=== PATIENT | female | born 1990 | race African-American/Black ===

== ENCOUNTER → 2023-08-24 09:32 | Outpatient (CLI) | payer OTHER, SELFPAY ==
--- NOTE | 2023-08-24 09:35 | DI.US.S_ITS ---
PROCEDURE: US OB <= 14 WEEKS FETUS INDICATIONS: DATING AND VIABILTY OUTSIDE/PRIOR DATING DATA: Last menstrual period (LMP): 06/29/2023. LMP-based estimated date of delivery (MANUEL): 04/04/2024. First dating scan (date and location): 08/24/2023. Estimated date of delivery (MANUEL) from first dating scan: 03/27/2024. TECHNIQUE: Real-time scanning was performed of the fetus and maternal pelvic organs, with image documentation. Endovaginal scanning was also performed to better visualize the fetus and maternal ovaries. COMPARISON: None. FINDINGS: Embryo: [place]-rump length of 2.4 cm, consistent with 9 weeks and 1 day. Normal yolk sac is seen. Heart rate: 163 beats per minute No perigestational bleed. Maternal organs: Ovaries are within normal limits. IMPRESSION: Single live intrauterine consistent with 9 weeks and 1 day. We strive to produce accurate, complete, and clear reports of imaging services. To assist us in improving patient care, this report was composed using standard report templates and voice recognition software. Therefore, it may contain abnormal punctuation, insertions and/or omissions. Occasional wrong-word or sound-alike substitutions may occur. Though we review the report and make efforts to correct it, we do recommend that the report be read carefully in proper context to recognize any text inaccuracies. Dictated by: Librado Cuba M.D. on 08/24/2023 at 10:38 Approved by: Librado Cuba M.D. on 08/24/2023 at 10:40
== END ==
PROVIDERS: Referring Provider Obstetrics & Gynecology; Visit Provider Obstetrics & Gynecology
DX: Z34.81 Encounter for supervision of other normal pregnancy, first trimester (principal); Z3A.09 9 weeks gestation of pregnancy
CPT/HCPCS: 76801; 76817

== ENCOUNTER → 2023-09-26 10:41 | Outpatient (CLI) | payer OTHER, SELFPAY ==
[2023-09-26 15:09] LABS: Urine Chlamydia NOT DETECTED; Urine N gonorrhoeae NOT DETECTED
== END ==
PROVIDERS: Visit Provider Obstetrics & Gynecology
DX: Z3A.13 13 weeks gestation of pregnancy; Z34.01 Encounter for supervision of normal first pregnancy, first trimester
CPT/HCPCS: 87491; 87591

== ENCOUNTER → 2023-09-26 11:02 | Outpatient (CLI) | payer OTHER, SELFPAY ==
[2023-09-26 12:04] LABS: Add Manual Diff / Slide Review NO; Basophils Absolute Auto 0 /uL (0-100); Basophils Percent Auto 0.2 % (0-2); Eosinophils Absolute Auto 100 /uL (0-450); Eosinophils Percent Auto 0.6 % (2-4); Hematocrit 32.5 % (36-46); Hemoglobin 11.1 g/dL (12.0-16.0); Lymphocytes Absolute Auto 1500 /uL (1100-4500); Lymphocytes Percent Auto 14.9 % (25-40); Mean Corpuscular HGB Conc 34.1 % (30-36); Mean Corpuscular Hemoglobin 29.1 PG (26-34); Mean Corpuscular Volume 85.4 fL (80-100); Monocytes Absolute Auto 600 /uL (0-900); Neutrophils Absolute Auto 7800 /uL (1500-7000); Neutrophils Percent Auto 78.3 % (50-75); Platelet Count 240 X10^3/uL (150-400); Red Cell Distribution Width 13.1 % (11.6-14.8); White Blood Cell Count 9.9 X10^3/uL (4.5-11.0)
[2023-09-27 04:38] LABS: RPR Screen Non Reactive (Non Reactive)
[2023-09-27 08:36] LABS: Varicella IgG Antibody 297 index (Immune >165)
[2023-09-27 20:12] LABS: HIV 1 & 2 Ab/Ag 4th Gen Combo NEGATIVE (NEGATIVE); Hepatitis B Surface Antigen NEGATIVE s/c (NEGATIVE); Rubella Antibody IgG 29.5 IU/mL (>15)
[2023-09-28 18:21] LABS: Hep C Virus Ab w/Reflex Quant NEGATIVE s/c (NEGATIVE)
== END ==
LOC: LAB 11:03
PROVIDERS: Referring Provider Obstetrics & Gynecology; Visit Provider Obstetrics & Gynecology
DX: Z34.81 Encounter for supervision of other normal pregnancy, first trimester (principal); Z3A.13 13 weeks gestation of pregnancy
CPT/HCPCS: 36415; 80055; 86787; 86803; 86850; 86900; 86901; 87389; 87491; 87591

== ENCOUNTER → 2023-11-08 08:46 | Outpatient (CLI) | payer OTHER, SELFPAY ==
--- NOTE | 2023-11-08 08:47 | DI.US.S_ITS ---
PROCEDURE: US OB >= 14 WEEKS FETUS INDICATIONS: Anatomy Scan OUTSIDE/PRIOR DATING DATA: Last menstrual period (LMP): 06/29/2023 LMP-based estimated date of delivery (MANUEL): 04/04/2024. First dating scan (date and location): 08/24/2023. Estimated date of delivery (MANUEL) from first dating scan: 03/27/2024 Working MANUEL is 04/04/2024. TECHNIQUE: Real-time scanning was performed of the fetus, with image documentation and biometric measurements. COMPARISON: [facility], , OB <= 14 WEEKS FETUS, 08/24/2023, 9:51. FINDINGS: General: A single living intrauterine gestation is present. Presentation: Breech. Placenta: Placental position is posterior fundal , without previa. Amniotic fluid index: 17.4 cm, normal range is 5-24 cm. Single deepest vertical pocket is 5.6 cm. heart rate: 147 beats per minute. Maternal cervical canal: 4.2 cm long. Normal lower limit is 2.5 cm. biometrics: Biparietal diameter: 19 weeks 4 days Head circumference: 19 weeks 2 days Abdominal circumference: 20 weeks 2 days Femur length: 19 weeks Clinically estimated gestational age: 18 weeks 6 days Composite gestational age from present scan: 19 weeks 4 days Estimated weight and percentile: 305 g; 88th percentile Anatomic survey: Neuro: Ventricles are non-dilated at less than 10 mm. Cisterna magna is normal at 3-11 mm. Cerebellum is normal in size and morphology. Nuchal skin fold: Normal at less than 6 mm between 14-21 weeks gestational age. Face: Nose and lips, facial profile are normal. Spine: No evidence for spina bifida. Heart: 4-chambered heart is present, with normal ventricular outflow tracts. Diaphragm: Diaphragm is intact. Stomach: Left-sided stomach is present with internal debris. Kidneys: No hydronephrosis. Normal is less than 5 mm in 2nd trimester, less than 7 mm in 3rd trimester. Cord: 3-vessel cord has orthotopic insertion. Bladder: Normal in size. Extremities: All 4 extremities identified. IMPRESSION: 1. Single living IUP redemonstrated and interval growth is upper limits of normal. 2. Normal anatomic survey. 3. Debris noted within the stomach. If clinically desired, short-term follow-up ultrasound could be performed to assess for temporal change and/or resolution. We strive to produce accurate, complete, and clear reports of imaging services. To assist us in improving patient care, this report was composed using standard report templates and voice recognition software. Therefore, it may contain abnormal punctuation, insertions and/or omissions. Occasional wrong-word or sound-alike substitutions may occur. Though we review the report and make efforts to correct it, we do recommend that the report be read carefully in proper context to recognize any text inaccuracies. Dictated by: Navarro SHEIKH Interpreted: Dori Bo MD on 11/08/2023 at 13:21 Transcribed by: MICHELLE on 11/08/2023 at 13:25 Approved by: Dori Bo M.D. on 11/08/2023 at 19:57
== END ==
LOC: US 08:46
PROVIDERS: Referring Provider Obstetrics & Gynecology; Visit Provider Obstetrics & Gynecology
DX: Z34.82 Encounter for supervision of other normal pregnancy, second trimester (principal); Z3A.19 19 weeks gestation of pregnancy
CPT/HCPCS: 76811

== ENCOUNTER 2023-11-08 16:29 | Emergency (ER) | payer OTHER, SELFPAY ==
[2023-11-08] VITALS (11 sets, daily range): BP systolic 101–128; BP diastolic 56–79; PULSE 60–73; RESP 16–22; TEMP 36.3–36.7; O2SAT 92–100; BMI 24.2
[2023-11-08 17:38] LABS: Add Manual Diff / Slide Review NO; Basophils Absolute Auto 0 /uL (0-100); Basophils Percent Auto 0.5 % (0-2); Eosinophils Absolute Auto 0 /uL (0-450); Eosinophils Percent Auto 0.8 % (2-4); Hemoglobin 11.8 g/dL (12.0-16.0); Lymphocytes Absolute Auto 1500 /uL (1100-4500); Lymphocytes Percent Auto 30.7 % (25-40); Mean Corpuscular HGB Conc 33.8 % (30-36); Mean Corpuscular Hemoglobin 29.2 PG (26-34); Mean Corpuscular Volume 86.3 fL (80-100); Monocytes Absolute Auto 400 /uL (0-900); Monocytes Percent Auto 8.3 % (3-14); Neutrophils Absolute Auto 3000 /uL (1500-7000); Neutrophils Percent Auto 59.7 % (50-75); Platelet Count 237 X10^3/uL (150-400); Red Blood Cell Count 4.06 X10^6/uL (4.0-5.2)
[2023-11-08 17:45] LABS: INR 1.1 (0.9-1.3); Prothrombin Time 12.7 SECONDS (9.4-12.5)
[2023-11-08 17:48] LABS: PTT Partial Thromboplastin Tim 35 SECONDS (25.1-36.5)
[2023-11-08 17:50] LABS: Alanine Aminotransferase 24 IU/L (<35); Albumin 3.9 g/dL (3.5-5.0); Albumin Globulin Ratio 1.1 (1.0-2.8); Alkaline Phosphatase 50 U/L (38-126); Aspartate Aminotransferase 38 IU/L (14-36); BUN Creatinine Ratio 13.3 (6-22); Bilirubin Total 0.3 mg/dL (0.2-1.3); Blood Urea Nitrogen 8 mg/dL (7-17); Calcium 8.5 mg/dL (8.4-10.2); Carbon Dioxide 22 mmol/L (22-32); Chloride 102 mmol/L (98-107); Creatine Kinase 68 U/L (30-135); Estimated Glomerular Filt Rate > 60 mL/min (>60); Globulin 3.5 g/dL (1.7-4.1); Glucose 74 mg/dL (70-100); HEMOLYSIS < 15 (0-50); Lipase 120 U/L (23-300); Magnesium 1.7 mg/dL (1.6-2.3); Potassium 3.7 mmol/L (3.4-5.1); Sodium 134 mmol/L (137-145); Total Protein 7.4 g/dL (6.3-8.2)
[2023-11-08 18:01] LABS: Troponin I < 0.012 ng/mL (0.01-0.034)
[2023-11-08 20:34] LABS: Bacteria Urine None Seen; Culture Indicated Urine Cult Not Indicated; Mucus Urine 1+ (Negative); RBC Urine None Seen (0-5/HPF); Squamous Epithelial Cell Urine None Seen (0-5/HPF); Urine Volume 10mL (spun); WBC Urine None Seen (0-5/HPF)
[2023-11-08 21:00] LABS: Troponin I < 0.012 ng/mL (0.01-0.034)
--- NOTE | 2023-11-08 22:22 | ED_ITS ---
HPI - Chest Pain General Chief Complaint: Chest Pain Stated Complaint: 20 wks , lt sided upper chest pain Time Seen by Provider: 11/08/23 19:15 Source: patient Mode of arrival: Ambulatory Limitations: no limitations History of Present Illness HPI narrative: 32-year-old at 20 weeks was sitting in her desk and all of sudden felt an acute pain in the left axilla almost radiating through to the back described as sharp and reproducible with deep breathing. She had eaten lunch just prior to that and taken an iron tablet. Not complaining of heartburn or central chest pressure. Has not noticed palpitations. No recent fever, cough, chills. No complications with this current . She states that she has never had previous findings. On arrival blood pressure is 101/56, pulse is 73 respiratory rate of 20 she is afebrile and oxygen saturations are 100% on room air. Related Data Home Medications Medication Instructions Recorded Confirmed vit no.95-ferrous 1 tab PO DAILY 09/11/23 10/25/23 fumarate 28 mg-folic acid 800 mcg tablet ( Multivitamins) Previous Rx's Medication Instructions Recorded ondansetron 4 mg disintegrating 4 mg PO Q6H PRN nausea and 10/09/23 tablet vomiting #20 tabs Allergies Allergy/AdvReac Type Severity Reaction Status Date / Time No Known Drug Allergies Allergy Unverified 10/25/23 14:39 Review of Systems Review of Systems Narrative: Pertinent positive and negative findings as per HPI Patient History Medical History Abnormal Pap smear of cervix (~2015) Kidney stones (~2021) Pituitary adenoma (~2021) Precipitous delivery Anxiety (~2021) Surgical History H/O LEEP (~2015) No pertinent past surgical history Family History Sister Multiple sclerosis Sister Pulmonary disease due to eosinophilic granulomatosis with polyangiitis (EGPA) Sister Diabetes mellitus Rheumatoid arthritis Lupus Father Hypertension Mother Diabetes mellitus Anxiety Panic attacks Grandmother Dementia Social History marital status: number of children: 2 household members: spouse and children lives independently: Yes caregiver/support person: Yes housing: house pets and animals: Yes (cat, managing litter box) education level: college (associate's degree) occupational status: employed (active duty, admin job) current occupational exposures/hazards: No special caterina needs: No travel history: over 6 months ago seatbelt use: always water heater temp set < 120 deg: Yes working smoke detector in home: Yes fire extinguisher in home: Yes carbon monox detector in home: Yes firearms in home: No do you feel safe at home: Yes Smoking Status: Never smoker Tobacco: How many years used: 8 second hand exposure: No alcohol intake: former (2-3 glasses wine/week when not ) substance use type: does not use during the past year weight has: other (more or less back to pre-baby wt, youngest is ~9 months old) well-balanced diet: rarely or never daily servings fruits/ve-1 (1-2) caffeine: No Type(s) of exercise: none Smoking Status: Never smoker Exam Initial Vital Signs Initial Vital Signs: Vital Signs Temperature 98.1 F 11/08/23 16:44 Pulse Rate 73 11/08/23 16:44 Respiratory Rate 20 11/08/23 16:44 Blood Pressure 101/56 L 11/08/23 16:44 Pulse Oximetry 100 11/08/23 16:44 Oxygen Delivery Method Room Air 11/08/23 16:44 General: Healthy appearing, in no acute distress. Able to give a complete and coherent history. Well-nourished well-developed HEENT: Moist mucous membranes, normal sclera with reactive pupils, Neck: No cervical adenopathy Respiratory: Lungs are clear to auscultation, no wheezing no rales no rhonchi. Full and symmetrical air movement. With deep breath there is some minor reproducible pain that she experiences in the axilla Cardiac: Regular rate and rhythm no murmurs no bruits Abdomen: Soft, gravid, heart tones are appreciated 144 Skin: Warm and dry, no rashes Neurologic: Grossly neurologically intact with no obvious asymmetries or abnormalities Extremities: No trauma, well perfused Psych: Cooperative, appropriate insight and affect Course Orders Ordered: ED Orders 11/08/23 16:55 EKG-12 Lead Stat 11/08/23 17:30 Complete Blood Count AUTO DIFF Stat Comprehensive Metabolic Panel Stat Lipase Stat Magnesium Stat PTT Partial Thromboplastin Aj Stat Prothrombin Time INR Stat Troponin & CK Cardiac Panel Stat 11/08/23 19:58 Urine Microscopic Stat 11/08/23 20:32 Troponin I Stat Discontinued Medications Acetaminophen (Acetaminophen 325 Mg Tablet) 650 mg PO NOW ONE Stop: 11/08/23 19:27 Last Admin: 11/08/23 19:42 Dose: Not Given Documented By: NAOMI Vital Signs Vital signs: Vital Signs - 8 hr 11/08/23 16:44 11/08/23 19:35 11/08/23 19:52 Temperature 98.1 F Pulse Rate 73 62 65 Respiratory Rate 20 18 Blood Pressure 101/56 L 103/59 L Pulse Oximetry 100 100 92 Oxygen Delivery Method Room Air Room Air 11/08/23 19:54 11/08/23 19:54 11/08/23 20:00 Temperature Pulse Rate 62 73 Respiratory Rate 17 20 Blood Pressure 102/58 L Pulse Oximetry 100 96 Oxygen Delivery Method 11/08/23 20:00 11/08/23 20:30 11/08/23 20:30 Temperature Pulse Rate 68 Respiratory Rate 22 Blood Pressure 128/79 118/56 L Pulse Oximetry 100 Oxygen Delivery Method 11/08/23 21:00 11/08/23 21:00 11/08/23 21:30 Temperature Pulse Rate 69 65 Respiratory Rate 18 18 Blood Pressure 120/69 Pulse Oximetry 97 97 Oxygen Delivery Method Room Air 11/08/23 21:30 Temperature Pulse Rate Respiratory Rate Blood Pressure 122/74 Pulse Oximetry Oxygen Delivery Method MDM - Chest Pain Lab Data 11/08/23 17:30 11/08/23 17:30 Labs: Lab Results 11/08/23 11/08/23 11/08/23 Range/Units 17:30 19:58 20:32 WBC 5.0 (4.5-11.0) X10^3/uL RBC 4.06 (4.0-5.2) X10^6/uL Hgb 11.8 L (12.0-16.0) g/dL Hct 35.0 L (36-46) % MCV 86.3 (80-100) fL MCH 29.2 (26-34) PG MCHC 33.8 (30-36) % RDW 14.0 (11.6-14.8) % Plt Count 237 (150-400) X10^3/uL Neut % (Auto) 59.7 (50-75) % Lymph % (Auto) 30.7 (25-40) % [place] % (Auto) 8.3 (3-14) % Eos % (Auto) 0.8 L (2-4) % Baso % (Auto) 0.5 (0-2) % Neut # (Auto) 3000 (2708-8889) /uL Lymph # (Auto) 1500 (5634-4149) /uL [place] # (Auto) 400 (0-900) /uL Eos # (Auto) 0 (0-450) /uL Baso # (Auto) 0 (0-100) /uL PT 12.7 H (9.4-12.5) SECONDS INR 1.1 (0.9-1.3) APTT 35 (25.1-36.5) SECONDS Sodium 134 L (137-145) mmol/L Potassium 3.7 (3.4-5.1) mmol/L Chloride 102 (98-107) mmol/L Carbon Dioxide 22 (22-32) mmol/L BUN 8 (7-17) mg/dL Creatinine 0.60 (0.52-1.04) mg/dL Estimated GFR > 60 (>60) mL/min BUN/Creatinine Ratio 13.3 (6-22) Glucose 74 (70-100) mg/dL Calcium 8.5 (8.4-10.2) mg/dL Magnesium 1.7 (1.6-2.3) mg/dL Total Bilirubin 0.3 (0.2-1.3) mg/dL AST 38 H (14-36) IU/L ALT 24 (<35) IU/L Alkaline Phosphatase 50 (38-126) U/L Total Creatine Kinase 68 (30-135) U/L Troponin I < 0.012 < 0.012 (0.01-0.034) ng/mL Total Protein 7.4 (6.3-8.2) g/dL Albumin 3.9 (3.5-5.0) g/dL Globulin 3.5 (1.7-4.1) g/dL Albumin/Globulin Ratio 1.1 (1.0-2.8) Lipase 120 (23-300) U/L Urine RBC None seen (0-5/HPF) Urine WBC None seen (0-5/HPF) Ur Squamous Epith Cells None seen (0-5/HPF) Urine Bacteria None seen (None) Urine Mucus 1+ H (Negative) Ur Culture Indicated? Cult not indicated Vol Urine Centrifuged 10ml (spun) Urine Dip Bedside Urine Glucose Negative Bedside Urine Bilirubin - Negative Bedside Urine Ketone - Negative Urine Specific [place] 1.015 Bedside Urine Occult Blood +/- Bedside Urine pH 6 Bedside Urine Protein +/- 15 Bedside Urine Urobilinogen - Negative Bedside Urine Nitrite - Negative Bedside Urine Leukocytes - Negative Esterase MDM Narrative Medical decision making narrative: CC: Acute left-sided chest pain at 20 weeks gestational age reproduced with deep breathing Complicating co-morbidities: Data collected from: patient Differential considered: Pneumothorax, pneumonia, referred pain, musculoskeletal pain, pleuritic pain. Given the completely normal vitals pulmonary embolism is less likely Exam documented above, pertinent findings include: Unremarkable exam. Pain is reproduced with deep breathing. Lab Test results independently reviewed as above. Pertinent findings: CBC is unremarkable Chemistries are reassuring Initial and repeat troponin are undetectable Lipase is normal Imaging studies independently reviewed: Bedside ultrasound is performed by me. There is no evidence of pneumothorax based on ultrasound Treatments: Tylenol Discussion: Otherwise healthy 32-year-old woman 20 weeks gestational age with acute onset left-sided chest pain worse with a deep breath most noticeable in the axilla radiating through to her back. Workup does not suggest acute pathology. No evidence of pneumothorax based on ultrasound done in the department, no pneumonia based on clinical exam, no evidence of acute coronary syndrome based on blood work. No pancreatitis, infection or other significant findings that would require additional imaging workup. Possibility of pill sticking to the lower esophagus causing tenderness is at least considered. She states that she has had some food since taking the pills after lunch and is not noticing any reflux type pain and did not notice that the food influenced her pain overall. At this point I believe the pain is musculoskeletal, patient is reassured. I believe she is safe for discharge. Discharge Plan Departure Patient Disposition: Home Clinical Impression: Acute chest wall pain Qualifiers: Weeks of gestation: 20 weeks Qualified Code(s): Z3A.20 - 20 weeks gestation of Instructions: DI for Pleurisy, DI for Musculoskeletal Pain Activity Restrictions/Additional Instructions: Thank you for coming in today Your workup was very reassuring. There is no evidence of collapsed lung, heart attack or heart attack like syndrome, infection such as pneumonia, no pancreatitis and no other dramatic abnormalities that would require hospitalization or additional workup today I suspect this is either musculoskeletal type pain or mild inflammation around the lining of your lung. The treatment for both of these is going to be Tylenol as needed. Typically this is self-limited and will improve without any additional treatment If you find that things were getting worse particularly if your short of breath, developing fevers, develop cough have new findings or concerns that is very appropriate to return to the ER Prescriptions: No Action ondansetron 4 mg tablet,disintegrating 4 mg PO Q6H PRN (Reason: nausea and vomiting) Qty: 20 0RF PNV cmb#95-ferrous fumarate-FA [ Multivitamins] 28 mg iron- 800 mcg tablet 1 tab PO DAILY Referrals: ProviderZoe [Primary Care Provider] - Stand Alone Forms: Patient Portal/API
[2023-11-08] MEDS: ACETAMINOPHEN 325 MG TABLET 975 MG PO (22:56)
== END 2023-11-08 23:06 | disposition home or self-care (01) ==
PROVIDERS: Emergency Medicine; Emergency Provider Emergency Medicine
DX: O26.892 Other specified pregnancy related conditions, second trimester (principal); R07.89 Other chest pain; Z3A.20 20 weeks gestation of pregnancy; Z34.82 Encounter for supervision of other normal pregnancy, second trimester; Z3A.19 19 weeks gestation of pregnancy
CPT/HCPCS: 36415; 76811; 80053; 81003; 81015; 82550; 83690; 83735; 84484; 85025; 85610; 85730; 93005; 93010; 99283; 99284

== ENCOUNTER 2023-12-10 09:52 | Outpatient (CLI) | payer OTHER, SELFPAY ==
--- NOTE | 2023-12-10 11:02 | DI.US.S_ITS ---
PROCEDURE: US OB BIOPHYSICAL PROFILE INDICATIONS: POST FALL OUTSIDE/PRIOR DATING DATA: Last menstrual period (LMP): 06/29/2023. LMP-based estimated date of delivery (MANUEL): 04/04/2024. First dating scan (date and location): 08/24/2023 Estimated date of delivery (MANUEL) from first dating scan: 03/27/2024. The calculations are made using the clinical MANUEL of 04/04/2024. TECHNIQUE: Real-time scanning was performed of the fetus for biophysical profile, with image documentation. Endovaginal scanning: Not performed COMPARISON: None. FINDINGS: General: A single living intrauterine gestation is present. Presentation: Transverse. Placenta: Placental position is posterior , without previa. Amniotic fluid index: 11.6 cm, normal range is 5-24 cm. Single deepest vertical pocket is 3.8 cm. heart rate: 147 beats per minute. Maternal cervical canal: 3.3 cm long. Normal lower limit is 2.5 cm. Clinically estimated gestational age: 23 weeks 3 days Biophysical profile: Tone: 2 points. Movement: 2 points. Respiration: 2 points. Largest pocket of fluid: 2 points. Umbilical artery Doppler: Not requested. IMPRESSION: Single living intrauterine at 23 weeks 3 days. BPP 8 of 8. We strive to produce accurate, complete, and clear reports of imaging services. To assist us in improving patient care, this report was composed using standard report templates and voice recognition software. Therefore, it may contain abnormal punctuation, insertions and/or omissions. Occasional wrong-word or sound-alike substitutions may occur. Though we review the report and make efforts to correct it, we do recommend that the report be read carefully in proper context to recognize any text inaccuracies. Dictated by: Tye Sebastian M.D. on 12/10/2023 at 11:49 Approved by: Tye Sebastian M.D. on 12/10/2023 at 11:51
== END 2023-12-10 11:36 | disposition home or self-care (01) ==
LOC: LABOR 10:03 → OB 12-11 09:48
PROVIDERS: Referring Provider Obstetrics & Gynecology; Visit Provider Obstetrics & Gynecology
DX: O36.8120 Decreased fetal movements, second trimester, not applicable or unspecified (principal); Z3A.24 24 weeks gestation of pregnancy
CPT/HCPCS: 59025; 76819; G0378; G0379

== ENCOUNTER → 2023-12-21 09:45 | Outpatient (CLI) | payer OTHER, SELFPAY ==
[2023-12-21 12:06] LABS: Hematocrit 32.9 % (36-46); Hemoglobin 11.1 g/dL (12.0-16.0)
[2023-12-21 12:32] LABS: GTT (PREG) 1 Hour PP 50gm Dose 122 mg/dL (76-139)
== END ==
PROVIDERS: Referring Provider Obstetrics & Gynecology; Visit Provider Obstetrics & Gynecology
DX: Z34.82 Encounter for supervision of other normal pregnancy, second trimester (principal); Z3A.26 26 weeks gestation of pregnancy
CPT/HCPCS: 36415; 82950; 85014; 85018

== ENCOUNTER → 2024-01-28 08:44 | Outpatient (CLI) | payer OTHER, SELFPAY ==
--- NOTE | 2024-01-28 08:45 | DI.US.S_ITS ---
PROCEDURE: US OB FOLLOW UP INDICATIONS: Debris in stomach on anatomy scan, F/U recommended OUTSIDE/PRIOR DATING DATA: Last menstrual period (LMP): 06/29/2023. LMP-based estimated date of delivery (MANUEL): 04/04/2024. First dating scan (date and location): 08/24/2023. Estimated date of delivery (MANUEL) from first dating scan: 03/27/2024. The calculations are made using the clinical MANUEL of 04/04/2024. TECHNIQUE: Real-time scanning was performed of the fetus, with image documentation. Endovaginal scanning: Not performed COMPARISON: Ultrasound 12/10/2023, 10/29/2023. FINDINGS: A single living intrauterine gestation is present. Presentation: Vertex. Placenta: Placental position is fundal, without previa. Amniotic fluid index: 11.4 cm, normal range is 5-24 cm. Single deepest vertical pocket is 4.5 cm. heart rate: 141 beats per minute. Maternal cervical canal: 4.8 cm long. Normal lower limit is 2.5 cm. Clinically estimated gestational age: 30 weeks 3 days Persistent debris within the stomach. IMPRESSION: Single living intrauterine at 30 weeks 3 days, MANUEL of 04/04/2024. Persistent debris within the stomach. In a recent, small study, this had no correlation with poor outcomes, and most resolved at 36 weeks. Continued follow up can be considered. Dictated by: Tye Sebastian M.D. on 01/28/2024 at 13:58 Approved by: Tye Sebastian M.D. on 01/28/2024 at 14:01
== END ==
PROVIDERS: Referring Provider Obstetrics & Gynecology; Visit Provider Obstetrics & Gynecology
DX: O28.3 Abnormal ultrasonic finding on antenatal screening of mother (principal); Z3A.30 30 weeks gestation of pregnancy
CPT/HCPCS: 76816

== ENCOUNTER → 2024-02-29 15:38 | Outpatient (CLI) | payer OTHER, SELFPAY ==
[2024-03-01 16:44] LABS: Strep Grp B PCR NEG for Grp B Strep
== END ==
PROVIDERS: Visit Provider Obstetrics & Gynecology
DX: Z34.03 Encounter for supervision of normal first pregnancy, third trimester (principal); Z3A.36 36 weeks gestation of pregnancy
CPT/HCPCS: 87653

== ENCOUNTER 2024-04-01 10:02 | Outpatient (CLI) | payer OTHER, SELFPAY | END 2024-04-01 10:50 | disposition home or self-care (01) | LOC: LABOR 10:12 → OB 04-03 12:18 | PROVIDERS: Referring Provider Obstetrics & Gynecology; Visit Provider Obstetrics & Gynecology | DX: O48.0 Post-term pregnancy (principal); O47.1 False labor at or after 37 completed weeks of gestation; Z3A.40 40 weeks gestation of pregnancy | CPT/HCPCS: 59025; 76815; G0378; G0379 ==

== ENCOUNTER 2024-04-02 09:27 | Outpatient (CLI) | payer OTHER, SELFPAY | END 2024-04-02 10:15 | disposition home or self-care (01) | LOC: LABOR 09:41 → OB 04-03 12:19 | PROVIDERS: Referring Provider Obstetrics & Gynecology; Visit Provider Obstetrics & Gynecology | DX: O46.93 Antepartum hemorrhage, unspecified, third trimester (principal); Z3A.40 40 weeks gestation of pregnancy | CPT/HCPCS: 59025; G0378; G0379 ==

== ENCOUNTER 2024-04-03 00:36 | Inpatient (IN) | payer OTHER, SELFPAY ==
--- NOTE | 2024-04-03 01:52 | P.HPOB_ITS ---
OB HPI Date/Time Date of admission: 04/03/24 Date Patient Seen: 04/03/24 Time Patient Seen: 01:52 History of Present Condition Chief complaint: Labor : 4 Para: 2 Estimated Date of Delivery: 03/27/24 Estimated Gestational Age (weeks): 41w Narrative: Rita Mays is a 33 yo at 41w0d presenting with PRECIOUS. She has been contreras since 10pm last night and arrived at triage just after midnight. has been uncomplicated. She does have a hx of prior precipitous delivery with her 2nd child and prior LEEP in 2015. She also had ABO incompatibility with her prior infant leading to jaundice. NST was performed on 04/01 for post-dates and was reactive with JAMES of 12cm. Contractions started at 10pm and are getting stronger. At this time, she is feeling contractions every 2 min or so. has had some vaginal spotting but no large gush of fluid. History of Present care: good care Dating criteria: based on 1st trimester US only Ultrasounds: normal 1st trimester US Obstetrical complications: none Medical complications: none Preadmission Labs Blood type: O (+) positive -: Antibody screen: negative, GBS status: negative, HBsAG: negative, HIV: negative and RPR/VDLR: negative -: Chlamydia screen: not detected and Gonorrhea screen: not detected -: Rubella: immune and Varicella: immune HCT: 12.1 HCAB: negative 1 hr GTT: 122 Evaluation Evaluation Baseline heart rate: 140 Variability: Moderate (11-25) monitor accelerations: Present Monitor Decelerations: Absent Contraction Frequency (minutes): 2 Uterine Contraction Intensity: Strong/Firm Category of Tracing: Reactive Dilation (cm): 7 Effacement (%): 80 Dilation: >/=5 cm Effacement: >/=80% station: -2 Position of cervix: anterior Consistency: soft Arnold [facility]: [facility] Medical History Abnormal Pap smear of cervix (~2015) Kidney stones (~2021) Pituitary adenoma (~2021) Precipitous delivery Anxiety (~2021) Surgical History H/O LEEP (~2015) No pertinent past surgical history Family History Sister Multiple sclerosis Sister Pulmonary disease due to eosinophilic granulomatosis with polyangiitis (EGPA) Sister Diabetes mellitus Rheumatoid arthritis Lupus Father Hypertension Mother Diabetes mellitus Anxiety Panic attacks Grandmother Dementia Social History marital status: number of children: 2 household members: spouse and children lives independently: Yes caregiver/support person: Yes housing: house pets and animals: Yes (cat, managing litter box) education level: college (associate's degree) occupational status: employed (active duty, admin job) current occupational exposures/hazards: No special caterina needs: No travel history: over 6 months ago seatbelt use: always water heater temp set < 120 deg: Yes working smoke detector in home: Yes fire extinguisher in home: Yes carbon monox detector in home: Yes firearms in home: No do you feel safe at home: Yes Smoking Status: Never smoker Tobacco: How many years used: 8 second hand exposure: No alcohol intake: former (2-3 glasses wine/week when not ) substance use type: does not use during the past year weight has: other (more or less back to pre-baby wt, youngest is ~9 months old) well-balanced diet: rarely or never daily servings fruits/ve-1 (1-2) caffeine: No Type(s) of exercise: none Meds Home Medications and Allergies Home Medications Medication Instructions Recorded Confirmed Type vit no.95-ferrous 1 tab PO DAILY 09/11/23 04/03/24 History fumarate 28 mg-folic acid 800 mcg tablet ( Multivitamins) breast pump #1 ea 02/15/24 04/03/24 Rx Allergies Allergy/AdvReac Type Severity Reaction Status Date / Time No Known Drug Allergies Allergy Unverified 04/01/24 09:30 Review of Systems Review of Systems Narrative: + vaginal bleeding (light spotting) No LOF no discharge No Montanez + nausea OB Exam Narrative Exam Narrative: GEN: Healthy appearing, well-developed, breating through contractions HEENT: -Head: NC/AT CV: warm and well perfused LUNGS: breathing comfortably on RA ABD: gravid SKIN: Warm, well perfused. No skin rashes or abnormal lesions MSK: Normal gait. No deformities NEURO: No focal deficits Assessment and Plan Assessment and Plan Assessment and Plan narrative: 33 yo at 41w0d presenting with PRECIOUS. She is contreras regularly. Exam /. FHT wtih reassuring baseline, mom moving around and difficulty to monitor but overall appears to be reactive and reassuring but there are frequent stretches where infant is not being monitored. No clear signs for concern. Ho spital is on divert but actively laboring therefore unable to transfer. Will manage expectantly now while awaiting anesthesia availability for epidural placement. - admit to center - IV - Anesthesia consult - CBC, and blood type - PPH meds in the room - GBS negative, no ppx needd - monitoring, continuous as able Time-Based Coding :: [TOTAL MINUTES] spent with patient and on the chart (including review of chart, obtaining history, exam, reviewing outside data, placing orders, documenting exam and treatment plan, and counseling patient) on [DATE].
[2024-04-03] MEDS: LACTATED RINGERS 1,000 ML 999 ML IV ×2 (02:10→06:35)
[2024-04-03 02:22] LABS: Add Manual Diff / Slide Review NO; Basophils Absolute Auto 100 /uL (0-100); Basophils Percent Auto 0.4 % (0-2); Eosinophils Absolute Auto 0 /uL (0-450); Eosinophils Percent Auto 0.3 % (2-4); Hemoglobin 12.7 g/dL (12.0-16.0); Lymphocytes Absolute Auto 1700 /uL (1100-4500); Lymphocytes Percent Auto 13.8 % (25-40); Mean Corpuscular HGB Conc 33.3 % (30-36); Mean Corpuscular Hemoglobin 30.7 PG (26-34); Mean Corpuscular Volume 92.3 fL (80-100); Monocytes Absolute Auto 800 /uL (0-900); Monocytes Percent Auto 6.6 % (3-14); Neutrophils Absolute Auto 9500 /uL (1500-7000); Neutrophils Percent Auto 78.9 % (50-75); Platelet Count 168 X10^3/uL (150-400); Red Blood Cell Count 4.12 X10^6/uL (4.0-5.2); White Blood Cell Count 12.1 X10^3/uL (4.5-11.0)
[2024-04-03 02:43] VITALS: BP 108/81
--- NOTE | 2024-04-03 03:46 | PM.AN.REGBLK ---
Regional Block Pre-procedure Procedure: Continuous Lumbar Epidural for L&D Attending OB provider: Shaina Schneider PMH/ROS narrative: PPDepression with previous preg PSH/Anesthesia history narrative: LEEP Exam narrative: Healthy 33yr old. No problems during ASA Class: II Labs: Hct 38.0 % (36-46) 04/03/24 02:10 Plt Count 168 X10^3/uL (150-400) 04/03/24 02:10 Medications: Current Medications Generic Name Dose Route Start Last Admin Trade Name Freq PRN Reason Stop Dose Admin Carboprost Tromethamine 250 mcg 04/03/24 02:15 Carboprost 250 Mcg/Ml Ampul IM Q90M PRN Bleeding Oxytocin/Lactated Ringer's 30 unit in 500 mls @ 200 mls/hr 04/03/24 02:15 Oxytocin Premix IV CONT PRN Bleeding Protocol Tranexamic Acid 1,000 mg/ 100 mls @ 600 mls/hr 04/03/24 02:15 Sodium Chloride IV NOW PRN Bleeding Lactated Ringer's 1,000 mls @ 100 mls/hr 04/03/24 02:15 04/03/24 02:10 Lactated Ringers IV 999 mls/hr CONT MAT Administration Lidocaine HCl 20 ml 04/03/24 02:15 Lidocaine 1% 20 Ml INJ INTRA-OP PRN Post Delivery Methylergonovine Maleate 0.2 mg 04/03/24 02:15 Methylergonovine 0.2 Mg Tablet PO Q6HR PRN Heavy Bleeding Methylergonovine Maleate 0.2 mg 04/03/24 02:15 Methylergonovine 0.2 Mg/Ml Vial IM NOW PRN Bleeding Misoprostol 800 mcg 04/03/24 02:15 Misoprostol 200 Mcg Tablet GA NOW PRN Bleeding Misoprostol 400 mcg 04/03/24 02:15 Misoprostol 200 Mcg Tablet SL NOW PRN Bleeding Naloxone HCl 0.2 mg 04/03/24 02:15 Naloxone 0.4 Mg/Ml Vial IV Q2MIN PRN Opiate Reversal Oxytocin 10 unit 04/03/24 02:15 Oxytocin 10 Unit/Ml Vial IM NOW PRN Bleeding Allergies: Allergies Allergy/AdvReac Type Severity Reaction Status Date / Time No Known Drug Allergies Allergy Unverified 04/01/24 09:30 Procedure Insertion date: 04/03/24 Insertion time: 03:14 Prep/Local: 1% lidocaine (chloroprep) Interspace: L3-4 Patient position: sitting Needle: 18 gauge Hustead Loss of resistance with: saline JOSÉ at (cm): 7 Catheter placed at SKIN (cm): 13 Catheter in SPACE (cm): 6 Initial Medications TEST DOSE time: 03:17 BOLUS DOSE time: 03:22 BOLUS DOSE (mL): 2 BOLUS DOSE med: other (1.5% with epi- remainder of test dose) Infusion Initial rate (mL/hr): 6 Post-procedure Anesthesia date START: 04/03/24 Anesthesia time START: 03:00
--- NOTE | 2024-04-03 06:35 | P.PCN_ITS ---
Regional Block Pre-procedure PMH/ROS narrative: PPDepression PSH/Anesthesia history narrative: LEEP ASA Class: II Labs: Hct 38.0 % (36-46) 04/03/24 02:10 Plt Count 168 X10^3/uL (150-400) 04/03/24 02:10 Medications: Current Medications Generic Name Dose Route Start Last Admin Trade Name Freq PRN Reason Stop Dose Admin Carboprost Tromethamine 250 mcg 04/03/24 02:15 Carboprost 250 Mcg/Ml Ampul IM Q90M PRN Bleeding Oxytocin/Lactated Ringer's 30 unit in 500 mls @ 200 mls/hr 04/03/24 02:15 Oxytocin Premix IV CONT PRN Bleeding Protocol Tranexamic Acid 1,000 mg/ 100 mls @ 600 mls/hr 04/03/24 02:15 Sodium Chloride IV NOW PRN Bleeding Lactated Ringer's 1,000 mls @ 100 mls/hr 04/03/24 02:15 04/03/24 02:10 Lactated Ringers IV 999 mls/hr CONT MAT Administration Lidocaine HCl 20 ml 04/03/24 02:15 Lidocaine 1% 20 Ml INJ INTRA-OP PRN Post Delivery Methylergonovine Maleate 0.2 mg 04/03/24 02:15 Methylergonovine 0.2 Mg Tablet PO Q6HR PRN Heavy Bleeding Methylergonovine Maleate 0.2 mg 04/03/24 02:15 Methylergonovine 0.2 Mg/Ml Vial IM NOW PRN Bleeding Misoprostol 800 mcg 04/03/24 02:15 Misoprostol 200 Mcg Tablet [place] NOW PRN Bleeding Misoprostol 400 mcg 04/03/24 02:15 Misoprostol 200 Mcg Tablet SL NOW PRN Bleeding Naloxone HCl 0.2 mg 04/03/24 02:15 Naloxone 0.4 Mg/Ml Vial IV Q2MIN PRN Opiate Reversal Oxytocin 10 unit 04/03/24 02:15 Oxytocin 10 Unit/Ml Vial IM NOW PRN Bleeding Allergies: Allergies Allergy/AdvReac Type Severity Reaction Status Date / Time No Known Drug Allergies Allergy Unverified 04/01/24 09:30 Procedure Insertion date: 04/03/24 Insertion time: 03:13 Prep/Local: 1% lidocaine (chloroprep) Interspace: L3-4 Patient position: sitting Needle: 18 gauge Hustead Loss of resistance with: saline JOSÉ at (cm): 7 Catheter placed at SKIN (cm): 13 Catheter in SPACE (cm): 6 Initial Medications TEST DOSE time: 03:15 Infusion INFUSION: 0.125% bupivacaine and with fentanyl 2 mcg/mL Post-procedure Anesthesia date START: 04/03/24 Anesthesia time START: 03:00 Anesthesia date END: 04/03/24 Anesthesia time END: 06:16 Post-procedure Anesthesia Assessment: Yes CV function: HR/BP stable, Yes Resp function: RR/sat/airway adequate, Yes Post-op hydration adequate, Yes Pain control adequate, Yes Nausea & vomiting absent, Yes Temperature > 36 C and Yes M ental status appropriate
[2024-04-03] MEDS: OXYTOCIN PREMIX 30 UNIT/500 ML PLAST..BAG 200 UNIT IV (06:36)
--- NOTE | 2024-04-03 06:47 | PM.OBPRVD ---
Labor & Delivery Delivery date: 04/03/24 Intrapartal Events: None Cervical ripening method: none Induction method: none Delivery monitor: external FHT Route of delivery: Indication for instrumentation: nonreassuring FHR tracing L&D Laceration Description: None Anesthesia Type: Epidural Narrative: PREPROCEDURE DIAGNOSIS: Intrauterine at 41w0d GBS negative ABO type O+ history of Rh incompatability History of LEEP in 2016 Late term POSTPROCEDURE DIAGNOSIS: Intrauterine at 41w0d, delivered Same as preprocedure PROCEDURE: Rita ríos a 33 yo at 41w0d presented with regular uterine contractions and was admitted to Labor and Delivery. The patient progressed through the 1st stage without difficulty. ROM occured at 03:42 with clear fluid. Pain was controlled with epidural. The patient progressed through the 2nd stage and delivered a viable female with APGARs 9/9 at 06:16 via . The cord was cut and clamped after at 60 second delay. The placenta delivered with gentle cord traction, and appeared complete. The perineum and vagina were inspected and no lacerations were visible. Needle and sponge counts were correct.? The vagina was inspected and no items were left in situ. Plan for aftercare: Routine care
[2024-04-03] MEDS: IBUPROFEN 600 MG TABLET PO ×2 (13:19→21:30)
[2024-04-04] MEDS: IBUPROFEN 600 MG TABLET PO (05:53)
--- NOTE | 2024-04-04 07:19 | PM.OBDS.1 ---
Discharge Providers Provider Date of admission: 04/03/24 00:36 Discharge Date: 04/04/24 Primary care physician: Zoe SYKES Provider Consults: 04/03/24 02:15 Consult to Anesthesiology Urgent Comment: Consulting Provider: Anesthesiologist Reason for consultation: Epidural 04/04/24 07:01 Consult to Photonic Laboratory Technician Routine Comment: Discharge provider: Shaina Schneider MD Summary Hospital Course Date Patient Seen: 04/04/24 Time Patient Seen: 07:20 Hospital Course: 33 yo G4 now P3 who presented at 41w0d presented with regular uterine contractions and was admitted to Labor and Delivery. The patient progressed through the 1st stage without difficulty. ROM occured at 03:42 with clear fluid. Pain was controlled with epidural. The patient progressed through the 2nd stage and delivered a viable female with APGARs 9/9 at 06:16 via . She has no tears. She did well postpartumand pain was controlled with ibuprofen. Bleeding was minimal. She is undecided on control at this time Peripartum Data Infant Delivery Method: Natural Vaginal Laceration Description: None complications: none Status at Discharge Cognitive/behavioral status at discharge: oriented Functional status at discharge: independent ambulation Overall status at discharge: patient is back to baseline Time Spent with Patient Time attestation: Total time spent providing and/or coordinating discharge services: Time spent: Less than 30 minutes Objective Labs 04/03/24 02:10 Exam Narrative Exam Narrative: GEN: Healthy appearing, well-developed, NAD. PSYCH: Good Judgment. AOx3. Normal memory, mood, and affect HEENT: -Head: NC/AT -Eyes: No discharge or redness CV: warm and well perfused LUNGS: breathing comfortably on RA SKIN: Warm, well perfused. No skin rashes or abnormal lesions ABD: fundus firm below U, non-tender MSK: No deformities NEURO: No focal deficits Discharge Plan Discharge Plan Patient Disposition: Home Discharge orders & Medications Prescriptions: Continued PNV cmb#[id number] fumarate-FA [ Multivitamins] 28 mg iron- 800 mcg tablet 1 tab PO DAILY No Action (DME) breast pump Device See Rx Instructions .Route Qty: 1 0RF Rx Instructions: As directed - Double electric Follow up/Referrals: Julian Orr MD [Physician] - (6 week Appt w/ Dr. Orr: May 15 @ 2:15pm) Visit Report/Discharge Packet Stand Alone Forms: Discharge: Care, Patient Portal/API, Stroke Signs & Symptoms Discharge Data Primary Care Provider: Zoe Horne
[2024-04-04 08:39] LABS: Add Manual Diff / Slide Review NO; Basophils Absolute Auto 0 /uL (0-100); Basophils Percent Auto 0.5 % (0-2); Eosinophils Absolute Auto 0 /uL (0-450); Eosinophils Percent Auto 0.6 % (2-4); Hematocrit 35.4 % (36-46); Hemoglobin 12.1 g/dL (12.0-16.0); Lymphocytes Absolute Auto 2100 /uL (1100-4500); Lymphocytes Percent Auto 25.7 % (25-40); Mean Corpuscular HGB Conc 34.1 % (30-36); Mean Corpuscular Hemoglobin 31.5 PG (26-34); Mean Corpuscular Volume 92.4 fL (80-100); Monocytes Absolute Auto 500 /uL (0-900); Monocytes Percent Auto 6.4 % (3-14); Neutrophils Absolute Auto 5500 /uL (1500-7000); Neutrophils Percent Auto 66.8 % (50-75); Platelet Count 147 X10^3/uL (150-400); Red Blood Cell Count 3.83 X10^6/uL (4.0-5.2); Red Cell Distribution Width 14.2 % (11.6-14.8); White Blood Cell Count 8.2 X10^3/uL (4.5-11.0)
[2024-04-04 12:55] VITALS: BP 100/54; PULSE 53; RESP 15; TEMP 36.2
== END 2024-04-04 12:15 | disposition home or self-care (01) | DRG 807 ==
PROVIDERS: Family Medicine; Admitting Provider Obstetrics & Gynecology; Referring Provider Obstetrics & Gynecology; Visit Provider Obstetrics & Gynecology
DX: O48.0 Post-term pregnancy (principal); Z37.0 Single live birth; Z3A.41 41 weeks gestation of pregnancy
CPT/HCPCS: 36415; 59050; 85025; 86850; 86900; 86901; G0379; J2590